=== PATIENT | male | born 1945 ===

== ENCOUNTER 2022-05-05 10:34 | Outpatient (CLI) | payer OTHER | END 2022-05-05 14:29 | disposition home or self-care (01) | LOC: WOUND MED 10:34 | PROVIDERS: ATTEND Specialist | DX: S89.92XA Unspecified injury of left lower leg, initial encounter (principal); L97.822 Non-pressure chronic ulcer of other part of left lower leg with fat layer exposed; I10 Essential (primary) hypertension | CPT/HCPCS: 11042; A4927; A6220; A6223; A6251 ==

== ENCOUNTER 2022-05-12 08:02 | Outpatient (CLI) | payer OTHER | END 2022-05-12 14:55 | disposition home or self-care (01) | LOC: WOUND MED 08:02 | PROVIDERS: ATTEND Specialist | DX: L97.822 Non-pressure chronic ulcer of other part of left lower leg with fat layer exposed (principal) | CPT/HCPCS: 11042; A4927; A6021; A6220; A6223; A6251 ==

== ENCOUNTER 2022-05-19 09:05 | Outpatient (CLI) | payer OTHER | END 2022-05-19 10:00 | disposition home or self-care (01) | LOC: WOUND CARE 09:05 | PROVIDERS: ATTEND Specialist | DX: L97.812 Non-pressure chronic ulcer of other part of right lower leg with fat layer exposed (principal) | CPT/HCPCS: 11042; A4927; A6223 ==

== ENCOUNTER 2022-05-27 09:21 | Outpatient (CLI) | payer OTHER | END 2022-05-27 10:00 | disposition home or self-care (01) | LOC: WOUND MED 09:21 | PROVIDERS: ATTEND Specialist | DX: L97.822 Non-pressure chronic ulcer of other part of left lower leg with fat layer exposed (principal) ==

== ENCOUNTER 2022-06-03 08:18 | Outpatient (CLI) | payer OTHER | END 2022-06-03 10:00 | disposition home or self-care (01) | LOC: WOUND MED 08:18 | PROVIDERS: ATTEND Specialist | DX: L97.829 Non-pressure chronic ulcer of other part of left lower leg with unspecified severity (principal) | CPT/HCPCS: A4927; A6223; G0463 ==